=== PATIENT | male | born 1955 | race Caucasian/White ===

== ENCOUNTER → 2025-01-23 13:14 | Outpatient (REF) | payer OTHER, SELFPAY | LOC: PAVMRI 13:14 | PROVIDERS: ATTENDING PHYSICIAN Family Medicine Sports Medicine; FAMILY PHYSICIAN Internal Medicine | DX: S46.012A Strain of muscle(s) and tendon(s) of the rotator cuff of left shoulder, initial encounter (principal) | CPT/HCPCS: 73221 ==